=== PATIENT | female | born 1945 | race Native Hawaiian/Other Pacific Islander ===

== ENCOUNTER 2017-05-29 09:03 | Outpatient (CLI) | payer OTHER ==
[~2017-05-29 09:03] MED LIST: HYDR25TA60 PO; PAXIL10 MG PO
== END 2017-05-29 18:55 | disposition home or self-care (01) ==
LOC: CT 09:03
DX: R51 Headache (principal)

== ENCOUNTER 2017-11-16 10:34 | Outpatient (CLI) | payer OTHER ==
[2017-11-16 10:57] LABS: PLATELET COUNT 230 K/uL (152-353)
[2017-11-16 11:21] LABS: POTASSIUM 3.9 mmol/L (3.6-5.2)
== END 2017-11-16 23:30 | disposition home or self-care (01) ==
LOC: LABW 10:34
PROVIDERS: Physician Assistant
DX: R63.4 Abnormal weight loss (principal); R68.89 Other general symptoms and signs; I10 Essential (primary) hypertension; E55.9 Vitamin D deficiency, unspecified; D51.8 Other vitamin B12 deficiency anemias
CPT/HCPCS: 36415; 80053; 82306; 82607; 82746; 83735; 84439; 84443; 85027

== ENCOUNTER 2018-06-18 05:41 | Outpatient (CLI) | payer OTHER ==
[2018-06-18 06:37] LABS: PLATELET COUNT 234 K/uL (152-353)
[2018-06-18 06:41] LABS: POTASSIUM 3.4 mmol/L (3.6-5.2)
== END 2018-06-18 18:59 | disposition home or self-care (01) ==
LOC: LABW 05:41
PROVIDERS: Internal Medicine
DX: I10 Essential (primary) hypertension (principal); E78.00 Pure hypercholesterolemia, unspecified
CPT/HCPCS: 36415; 80053; 80061; 81000; 84439; 84443; 85027

== ENCOUNTER 2018-09-24 07:07 | Outpatient (CLI) | payer OTHER ==
[2018-09-24 07:57] LABS: POTASSIUM 3.7 mmol/L (3.6-5.2)
== END 2018-09-24 19:18 | disposition home or self-care (01) ==
LOC: LAB 07:07
PROVIDERS: Internal Medicine
DX: I10 Essential (primary) hypertension (principal)
CPT/HCPCS: 36415; 80053; 80061

== ENCOUNTER 2019-05-02 14:53 | Outpatient (CLI) | payer OTHER ==
[2019-05-02 15:25] LABS: POTASSIUM 4.8 mmol/L (3.6-5.2)
== END 2019-05-02 20:41 | disposition home or self-care (01) ==
LOC: LAB 14:53
PROVIDERS: Physician Assistant
DX: E78.00 Pure hypercholesterolemia, unspecified (principal); I10 Essential (primary) hypertension; R68.89 Other general symptoms and signs; E53.8 Deficiency of other specified B group vitamins
CPT/HCPCS: 80053; 80061; 82607

== ENCOUNTER 2019-05-20 08:26 | Outpatient (CLI) | payer OTHER | END 2019-05-20 21:13 | disposition home or self-care (01) | LOC: CT 08:26 | DX: R10.84 Generalized abdominal pain (principal) | CPT/HCPCS: Q9963 ==

== ENCOUNTER 2020-01-13 14:09 | Outpatient (CLI) | payer OTHER | END 2020-01-13 19:24 | disposition home or self-care (01) | LOC: RAD 14:09 | DX: S51.812A Laceration without foreign body of left forearm, initial encounter (principal); W19.XXXA Unspecified fall, initial encounter ==

== ENCOUNTER 2021-01-05 10:50 | Outpatient (CLI) | payer OTHER | END 2021-01-05 19:16 | disposition home or self-care (01) | LOC: US 10:50 | PROVIDERS: ATTEND Internal Medicine | DX: R79.89 Other specified abnormal findings of blood chemistry (principal) ==

== ENCOUNTER 2022-01-24 09:16 | Emergency (ER) | payer OTHER ==
[~2022-01-24] VITALS: Ht 154.9 cm; Wt 72.6 kg
[2022-01-24 09:27] VITALS: TEMP 98
[2022-01-24 11:08] LABS: PLATELET COUNT 190 K/uL (152-353)
[2022-01-24 11:32] LABS: POTASSIUM 3.7 mmol/L (3.6-5.2)
[2022-01-24 11:59] VITALS: BP 120/62
== END 2022-01-24 12:02 | disposition short-term general hospital (02) ==
LOC: ED 09:16
PROVIDERS: Emergency Medicine Emergency Medical Services
DX: S00.83XA Contusion of other part of head, initial encounter (principal); S00.03XA Contusion of scalp, initial encounter; S80.01XA Contusion of right knee, initial encounter; W18.39XA Other fall on same level, initial encounter; Y92.89 Other specified places as the place of occurrence of the external cause
CPT/HCPCS: 80048; 85027; 85610; 99283